=== PATIENT | female | born 1975 | race Caucasian/White ===

== ENCOUNTER 2017-01-08 17:36 | Emergency (ER) | payer OTHER ==
[2017-01-08 17:51] VITALS: BP 139/84
[2017-01-08] MEDS ORDERED: Sodium Chloride 0.9% 10 ML Syringe FLUSH PRN (18:40)
--- NOTE | 2017-01-08 18:47 | EDM.PDOC ---
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 She finds it more noticeable on the drive to work. There is also a feeling of not being able to get a full breath. Some then today she started developing more intense left-sided chest pain above the left breast. With a deep breath it radiates straight through to the back. Cindy been there since noon. She had an EKG done at her clinic which was normal, but told to come to the hospital to get troponins done to make sure she didn't have a heart attack. In addition today she had a racing heart, she took her pulse and it was 118 minute the fastest and her blood pressure was up to 140/82, normally she is below average. She did take one Ativan tablet which helped her palpitations. Specimen history of anxiety Also gastric bypass Radames-en-Y in 2002 No history of heart disease or palpitations significantly in the past No history of lung disease apart from 2 episodes of pleurisy. Remote history of smoking, never heavy Has had 5 children, 3 of them are at home now, the oldest one at home, aged 15, is a source of considerable stress over the past few weeks. Sleep and appetite and work have been unchanged she's been able to do all her usual activities. No episodes of sweating or nausea She still has some discomfort at the present time Has not taken any analgesics Chest Pain Score (Numeric/FACES): 3 - Related Data Allergies Allergy/AdvReac Type Severity Reaction Status Date / Time No Known Allergies Allergy Verified 03/18/14 08:23 Home Meds: Home Meds Diazepam [Diazepam] 2 mg PO BEDTIME PRN 08/25/13 [History] LORazepam [Ativan] 1 mg PO ASDIRECTED PRN 08/25/13 [History] Spironolactone [Spironolactone] 100 mg PO DAILY 08/25/13 [History] Escitalopram [Lexapro] 20 mg PO DAILY 01/08/17 [History] Past Medical History - Infectious Disease History Infectious Disease History: Reports: Chicken Pox - Past Surgical History GI Surgical History: Reports: Bariatric Procedure Female Surgical History: Reports: Section, Hysterectomy Other Female Surgeries/Procedures: dnc Social & Family History - Tobacco Use Smoking Status *Q: Never Smoker Years of Tobacco use: 8 Used Tobacco, but Quit: Yes Month Tobacco Last Used: 0 Second Hand Smoke Exposure: No - Caffeine Use Caffeine Use: Reports: Coffee, Soda - Alcohol Use Days Per Week of Alcohol Use: 7 Number of Drinks Per Day: 4 Total Drinks Per Week: 28 - Recreational Drug Use Recreational Drug Use: No ED ROS GENERAL - Review of Systems Review Of Systems: See Below Constitutional: Reports: No Symptoms HEENT: Reports: No Symptoms Respiratory: Reports: Other (Feeling of incomplete breath) Cardiovascular: Reports: Chest Pain (At least 6 hours), Palpitations, Other ( Chest tightness for a week) Endocrine: Reports: No Symptoms GI/Abdominal: Reports: No Symptoms : Reports: No Symptoms Musculoskeletal: Reports: No Symptoms Skin: Reports: No Symptoms Neurological: Reports: No Symptoms Psychiatric: Reports: Anxiety Hematologic/Lymphatic: Reports: No Symptoms Immunologic: Reports: No Symptoms ED EXAM, GENERAL - Physical Exam Exam: See Below Exam Limited By: No Limitations General Appearance: Alert, No Apparent Distress, Other (Vital signs are within normal limits of mild elevation of systolic blood pressure, color normal, does not appear distressed) Eye Exam: Bilateral Eye: Normal Inspection Ears: Normal External Exam, Normal TMs Nose: Normal Inspection, Normal Mucosa Throat/Mouth: Normal Inspection, Normal Oropharynx Head: Atraumatic, Normocephalic Neck: Normal Inspection, Supple. No: Lymphadenopathy (R), Lymphadenopathy (L) Respiratory/Chest: No Respiratory Distress, Lungs Clear, Normal Breath Sounds, No Accessory Muscle Use, Chest Non-Tender Cardiovascular: Normal Peripheral Pulses, Regular Rate, Rhythm, No Murmur GI/Abdominal: Soft, Non-Tender Extremities: Normal Inspection, No Pedal Edema Neurological: Alert, Oriented, No Motor/Sensory Deficits Psychiatric: Normal Mood Skin Exam: Warm, Dry Lymphatic: No Adenopathy (And) Course - Vital Signs Last Recorded V/S: Last Vital Signs Temp 36.6 C 01/08/17 17:56 Pulse 89 01/08/17 17:56 Resp 16 01/08/17 17:56 BP 139/84 01/08/17 17:56 Pulse Ox 99 01/08/17 17:56 - Orders/Labs/Meds Orders: Active Orders 24 hr Category Date Time Status EKG Documentation Completion [RC] ASDIRECTED Care 01/08/17 18:39 Active Chest 1V Frontal [CR] Stat Exams 01/08/17 18:39 Taken Sodium Chloride 0.9% [Saline Flush] Med 01/08/17 18:40 Active 10 ml FLUSH ASDIRECTED PRN Saline Lock Insert [OM.PC] Stat Oth 01/08/17 18:40 Ordered EKG 12 Lead [EK] Routine Ther 01/08/17 18:38 Ordered Medication Orders Sodium Chloride (Saline Flush) 10 ml FLUSH ASDIRECTED PRN PRN Reason: Keep Vein Open Last Admin: 01/08/17 19:03 Dose: 10 ml Labs: Laboratory Tests 01/08/17 01/08/17 01/08/17 Range/Units 18:50 18:50 18:50 WBC 6.9 (4.5-11.0) K/uL RBC 4.57 (3.30-5.50) M/uL Hgb 13.6 (12.0-15.0) g/dL Hct 42.0 (36.0-48.0) % MCV 92 (80-98) fL MCH 30 (27-31) pg MCHC 32 (32-36) % Plt Count 174 (150-400) K/uL D-Dimer, Quantitative < 100 (0.0-400.0) ng/mL Sodium 143 (140-148) mmol/L Potassium 4.6 (3.6-5.2) mmol/L Chloride 105 (100-108) mmol/L Carbon Dioxide 30 (21-32) mmol/L Anion Gap 8.4 (5.0-14.0) mmol/L BUN 19 H (7-18) mg/dL Creatinine 0.8 (0.6-1.0) mg/dL Est Cr Clr Drug Dosing 84.88 mL/min Estimated GFR (MDRD) > 60 (>60) Glucose 97 (74-106) mg/dL Calcium 8.2 L (8.5-10.1) mg/dL Troponin I < 0.017 (0.000-0.056) ng/mL Meds: Medications Generic Name Dose Route Start Last Admin Trade Name Hoang PRN Reason Stop Dose Admin Sodium Chloride 10 ml 01/08/17 18:40 01/08/17 19:03 Saline Flush FLUSH 10 ml ASDIRECTED PRN Administration Keep Vein Open - Re-Assessments/Exams Free Text/Narrative Re-Assessment/Exam: 01/08/17 18:48 a 41-year-old female with history of anxiety, chest tightness for a week and chest pain for a day. Unlikely to be cardiac. Will do testing to rule out cardiac or PE. More likely related to situational stress with her 15-year-old daughter. EKG from the clinic was normal She has declined analgesics here 01/08/17 19:37 CBC troponin d-dimer chest x-ray EKG normal by my interpretation There is a suggestion of RSR pattern in EKG done here See discharge instructions Departure - Departure Time of Disposition: 19:36 Disposition: Home, Self-Care 01 Condition: good Clinical Impression: Non-cardiac chest pain - Discharge Information Instructions: Nonspecific Chest Pain, [id number] Forms: ED Department Discharge Additional Instructions: Take acetaminophen or ibuprofen for pain as needed Warm packs may also be helpful See help for dealing with the stress if needed See your physician if the pain is still persisting one week Get rechecked promptly if you have severe pain, shortness of breath, high fever or skin rash develops - My Orders Last 24 Hours: My Active Orders 01/08/17 18:38 EKG 12 Lead [EK] Routine 01/08/17 18:39 EKG Documentation Completion [RC] ASDIRECTED Chest 1V Frontal [CR] Stat 01/08/17 18:40 Sodium Chloride 0.9% [Saline Flush] 10 ml FLUSH ASDIRECTED PRN Saline Lock Insert [OM.PC] Stat - Assessment/Plan Last 24 Hours: My Active Orders 01/08/17 18:38 EKG 12 Lead [EK] Routine 01/08/17 18:39 EKG Documentation Completion [RC] ASDIRECTED Chest 1V Frontal [CR] Stat 01/08/17 18:40 Sodium Chloride 0.9% [Saline Flush] 10 ml FLUSH ASDIRECTED PRN Saline Lock Insert [OM.PC] Stat
--- NOTE | 2017-01-09 08:30 | CR ---
Chest 1V Frontal HISTORY: No Clinical Info FINDINGS: Heart size within normal limits. Pulmonary vasculature within normal limits. No evidence f or focal consolidation or cardiopulmonary process. IMPRESSION: No radiographic evidence for acute cardiopulmonary process.
== END 2017-01-08 19:58 | disposition home or self-care (01) ==
LOC: JP.ED 17:36
DX: R07.89 Other chest pain (principal); Z79.899 Other long term (current) drug therapy; Z98.84 Bariatric surgery status; Z90.710 Acquired absence of both cervix and uterus; Z98.890 Other specified postprocedural states
CPT/HCPCS: 36415; 71010; 80048; 84484; 85027; 85379; 93005; 99285; J7050

== ENCOUNTER 2020-02-25 14:23 | Emergency (ER) | payer BC, OTHER ==
[2020-02-25 14:41] VITALS: BP 135/87
--- NOTE | 2020-02-25 15:27 | EDM.PDOC ---
ED HPI GENERAL MEDICAL PROBLEM - General Chief Complaint: Cardiovascular Problem Stated Complaint: RAPID HEART RATE Time Seen by Provider: 02/25/20 15:26 Source of Information: Reports: Patient History Limitations: Reports: No Limitations - History of Present Illness INITIAL COMMENTS - FREE TEXT/NARRATIVE: pt has a episode of rapid heart rate while she was driving today and during that time she felt sob. She has had low grade temps. She did have a positive Lymes screen but the [place] is not back. She had one neg covid test but a second is pending. She was very concern when she had the sustained tachy. Onset: Sudden Duration: Hour(s): Location: Reports: Chest, Other (pt had a rapid heart beat. ) Associated Symptoms: Reports: Weakness, Other ( rapiod heart beat. ) Chest Pain Score (Numeric/FACES): 1 - Related Data Allergies Allergy/AdvReac Type Severity Reaction Status Date / Time No Known Allergies Allergy Verified 02/25/20 14:52 Home Meds: Home Meds LORazepam [Ativan] 1 mg PO ASDIRECTED PRN 08/25/13 [History] Spironolactone 100 mg PO DAILY 08/25/13 [History] Escitalopram [Lexapro] 20 mg PO DAILY 01/08/17 [History] Past Medical History HEENT History: Reports: Impaired Vision Gastrointestinal History: Reports: None Genitourinary History: Reports: None [employer] History: Reports: Psychiatric History: Reports: Depression Endocrine/Metabolic History: Reports: Obesity/BMI 30+ Hematologic History: Reports: B12 Deficiency, Blood Transfusion(s), Iron Deficiency - Infectious Disease History Infectious Disease History: Reports: Chicken Pox - Past Surgical History Head Surgeries/Procedures: Reports: None HEENT Surgical History: Reports: None GI Surgical History: Reports: Bariatric Procedure Female Surgical History: Reports: Section, Hysterectomy Other Female Surgeries/Procedures: dnc Endocrine Surgical History: Reports: None Dermatological Surgical History: Reports: None Social & Family History - Tobacco Use Smoking Status *Q: Former Smoker Used Tobacco, but Quit: Yes Month/Year Tobacco Last Used: 1999 Second Hand Smoke Exposure: No - Caffeine Use Caffeine Use: Reports: Coffee, Soda - Recreational Drug Use Recreational Drug Use: No ED ROS GENERAL - Review of Systems Review Of Systems: See Below Constitutional: Reports: Weakness HEENT: Reports: No Symptoms Respiratory: Reports: Shortness of Breath, Other ( when her heart rate was rapid she did feel sob. ) Endocrine: Reports: No Symptoms GI/Abdominal: Reports: No Symptoms : Reports: No Symptoms Musculoskeletal: Reports: No Symptoms Skin: Reports: No Symptoms ED EXAM, GENERAL - Physical Exam Exam: See Below Free Text/Narrative:: pt arrived with a history of having an episode of fairly sustained tachcardia. She did not have chest pain. She had a neg covid because she is running fevers Dr razo did order a second covid 19 which is not back. She was found to have a positive lymes but the western block is not back. Exam Limited By: No Limitations General Appearance: Alert, No Apparent Distress, Anxious, Other (pupils are equal and reactive. ) Ears: Normal TMs Nose: Normal Inspection Throat/Mouth: Normal Inspection Head: Atraumatic Neck: Normal Inspection Respiratory/Chest: No Respiratory Distress Cardiovascular: Regular Rate, Rhythm, Other (pt had a rate in the 90s at first but this did gradually slow down. ) GI/Abdominal: Soft, Non-Tender (Female) Exam: Deferred Rectal (Female) Exam: Deferred Back Exam: Normal Inspection Extremities: Normal Inspection Course - Vital Signs Last Recorded V/S: Last Vital Signs Temp 36.8 C 02/25/20 14:54 Pulse 78 02/25/20 16:40 Resp 16 02/25/20 16:40 BP 135/87 02/25/20 14:54 Pulse Ox 99 02/25/20 16:40 - Orders/Labs/Meds Labs: Laboratory Tests 02/25/20 02/25/20 02/25/20 Range/Units 15:30 15:30 15:30 WBC 6.4 (4.5-11.0) K/uL RBC 4.50 (3.30-5.50) M/uL Hgb 12.3 (12.0-15.0) g/dL Hct 39.6 (36.0-48.0) % MCV 88 (80-98) fL MCH 27 (27-31) pg MCHC 31 L (32-36) % Plt Count 235 (150-400) K/uL Neut % (Auto) 65 (36-66) % Lymph % (Auto) 21 L (24-44) % [place] % (Auto) 11 H (2-6) % Eos % (Auto) 3 (2-4) % Baso % (Auto) 1 (0-1) % D-Dimer, Quantitative (0.0-400.0) ng/mL Sodium 143 (140-148) mmol/L Potassium 4.5 (3.6-5.2) mmol/L Chloride 108 (100-108) mmol/L Carbon Dioxide 27 (21-32) mmol/L Anion Gap 8.3 (5.0-14.0) mmol/L BUN 15 (7-18) mg/dL Creatinine 0.8 (0.6-1.0) mg/dL Est Cr Clr Drug Dosing 79.07 mL/min Estimated GFR (MDRD) > 60 (>60) Glucose 101 (74-106) mg/dL Calcium 8.6 (8.5-10.1) mg/dL Total Bilirubin 0.2 (0.2-1.0) mg/dL AST 21 (15-37) U/L ALT 31 (12-78) U/L Alkaline Phosphatase 51 (46-116) U/L C-Reactive Protein < 0.05 (0.0-0.3) mg/dL Total Protein 7.0 (6.4-8.2) g/dL Albumin 3.9 (3.4-5.0) g/dL Globulin 3.1 (2.3-3.5) g/dL Albumin/Globulin Ratio 1.3 (1.2-2.2) Urine Color (YELLOW) Urine Appearance (CLEAR) Urine pH (5.0-8.0) Ur Specific [place] (1.008-1.030) Urine Protein (NEGATIVE) mg/dL Urine Glucose (UA) (NEGATIVE) mg/dL Urine Ketones (NEGATIVE) mg/dL Urine Occult Blood (NEGATIVE) Urine Nitrite (NEGATIVE) Urine Bilirubin (NEGATIVE) Urine Urobilinogen (0.2-1.0) EU/dL Ur Leukocyte Esterase (NEGATIVE) Urine RBC (0-5) Urine WBC (0-5) Ur Epithelial Cells Amorphous Sediment Urine Bacteria Urine Mucus 02/25/20 02/25/20 Range/Units 15:30 16:23 WBC (4.5-11.0) K/uL RBC (3.30-5.50) M/uL Hgb (12.0-15.0) g/dL Hct (36.0-48.0) % MCV (80-98) fL MCH (27-31) pg MCHC (32-36) % Plt Count (150-400) K/uL Neut % (Auto) (36-66) % Lymph % (Auto) (24-44) % [place] % (Auto) (2-6) % Eos % (Auto) (2-4) % Baso % (Auto) (0-1) % D-Dimer, Quantitative < 100 (0.0-400.0) ng/mL Sodium (140-148) mmol/L Potassium (3.6-5.2) mmol/L Chloride (100-108) mmol/L Carbon Dioxide (21-32) mmol/L Anion Gap (5.0-14.0) mmol/L BUN (7-18) mg/dL Creatinine (0.6-1.0) mg/dL Est Cr Clr Drug Dosing mL/min Estimated GFR (MDRD) (>60) Glucose (74-106) mg/dL Calcium (8.5-10.1) mg/dL Total Bilirubin (0.2-1.0) mg/dL AST (15-37) U/L ALT (12-78) U/L Alkaline Phosphatase (46-116) U/L C-Reactive Protein (0.0-0.3) mg/dL Total Protein (6.4-8.2) g/dL Albumin (3.4-5.0) g/dL Globulin (2.3-3.5) g/dL Albumin/Globulin Ratio (1.2-2.2) Urine Color Yellow (YELLOW) Urine Appearance Clear (CLEAR) Urine pH 7.0 (5.0-8.0) Ur Specific [place] 1.020 (1.008-1.030) Urine Protein Negative (NEGATIVE) mg/dL Urine Glucose (UA) Negative (NEGATIVE) mg/dL Urine Ketones Negative (NEGATIVE) mg/dL Urine Occult Blood Negative (NEGATIVE) Urine Nitrite Negative (NEGATIVE) Urine Bilirubin Negative (NEGATIVE) Urine Urobilinogen 0.2 (0.2-1.0) EU/dL Ur Leukocyte Esterase Negative (NEGATIVE) Urine RBC 0-5 (0-5) Urine WBC 0-5 (0-5) Ur Epithelial Cells Rare Amorphous Sediment Not seen Urine Bacteria Moderate Urine Mucus Not seen - Re-Assessments/Exams Free Text/Narrative Re-Assessment/Exam: 02/25/20 17:05 pt had a normal ddimer. She was found to have normal labs. 02/25/20 17:06 will treat as a lymes until the western block is back. Departure - Departure Time of Disposition: 16:53 Disposition: Home, Self-Care 01 Condition: Fair Clinical Impression: At high risk for tick borne illness Referrals: PCP,None [Primary Care Provider] - Forms: ED Department Discharge Care Plan Goals: pt has a positive lymes but the western block is not back. Because of the symptoms I would treat with doxycyline until the western block returns. Pt is contact Dr Razo for the results of the covid 19 test and the results of the Western block Doxyyline 100mg bid.l Sepsis Event Note (ED) - Evaluation Sepsis Screening Result: Possible Sepsis Risk
[2020-02-25 16:41] VITALS: PULSE 78
== END 2020-02-25 17:08 | disposition home or self-care (01) ==
LOC: JP.ED 14:23
DX: A69.20 Lyme disease, unspecified (principal); F32.9 Major depressive disorder, single episode, unspecified; E66.9 Obesity, unspecified; Z68.36 Body mass index [BMI] 36.0-36.9, adult; Z79.899 Other long term (current) drug therapy
CPT/HCPCS: 36415; 80053; 81001; 85025; 85379; 86140; 93005; 99285-25